=== PATIENT | male | born 1960 | race Two or more races ===

== ENCOUNTER 2018-02-20 15:29 | Inpatient (IN) | payer OTHER ==
[2018-02-20] MEDS ORDERED: HYDRALAZINE HCL INJ/PF 20 MG/1 ML SDV IV ONE (15:54)
--- NOTE | 2018-02-20 15:57 | ER Document Report ---
ED Medical Screen (RME) - General Chief Complaint: Chest Pain Stated Complaint: CHEST PAIN, BLOOD IN URINE, WEAKNESS Time Seen by Provider: 02/20/18 15:49 Notes: RME DISCLOSURE I have seen this patient as part of a Rapid Medical Evaluation and, if applicable, placed any initially appropriate orders. The patient will be seen and fully evaluated, including a full history and physical exam, by a provider ( in Main ED or Fast Track) when a room becomes available. 57-year-old male here with complaints of shortness of breath left-sided nonradiating chest pain worse with breathing but not with exertion. This is been ongoing for the past 1-2 weeks. Symptoms are also worse with laying flat and improved with sitting upright. He denies history of heart failure. He was told 10 years ago that his blood pressure was elevated and he was given a 30 day prescription for blood pressure medications however after he finished these medications, he cannot afford to see a doctor so he never went to be evaluated therefore he has gone the past 10 years without taking blood pressure medications. He also reports that he's been urinating blood but denies abdominal pain flank pain back pain. TRAVEL OUTSIDE OF THE [place] IN LAST 30 DAYS: No - Related Data Allergies/Adverse Reactions: No Known Allergies Allergy (Verified 02/20/18 15:29) Past Medical History - Social History Chew tobacco use (# tins/day): No Frequency of alcohol use: Occasional Drug Abuse: None - Past Medical History Cardiac Medical History: Reports: Hx Hypertension - non-compliant with meds Renal/ Medical History: Denies: Hx Peritoneal Dialysis - Immunizations Immunizations up to date: Yes Hx Diphtheria, Pertussis, Tetanus Vaccination: Yes Physical Exam - Vital signs Vitals: Temp Pulse Resp BP Pulse Ox 98.4 F 99 16 188/117 H 96 02/20/18 15:39 02/20/18 15:39 02/20/18 15:39 02/20/18 15:39 02/20/18 15:39 Course - Vital Signs Vital signs: Temp Pulse Resp BP Pulse Ox 98.4 F 99 16 188/117 H 96 02/20/18 15:39 02/20/18 15:39 02/20/18 15:39 02/20/18 15:39 02/20/18 15:39
[2018-02-20] MEDS ORDERED: NORMAL SALINE 500 ML IV ONE (16:11)
[2018-02-20 16:24] LABS: ABSOLUTE BASOPHILS # (AUTO) 0.2 10^3/uL (0.0-0.2); ABSOLUTE EOSINOPHILS # (AUTO) 0.2 10^3/uL (0.0-0.6); ABSOLUTE LYMPHOCYTES (AUTO) 2.4 10^3/uL (0.5-4.7); ABSOLUTE MONOCYTES (AUTO) 0.9 10^3/uL (0.1-1.4); BASOPHILS % (AUTO) 1.4 % (0-2); EOSINOPHILS % (AUTO) 1.7 % (0-6); HEMOGLOBIN 10.7 g/dL (13.5-17.0); LYMPHOCYTES % (AUTO) 18.9 % (13-45); MEAN CORPUSCULAR HGB CONC 32.3 g/dL (32.0-36.0); MEAN CORPUSCULAR VOLUME 83 fl (80-97); MONOCYTES % (AUTO) 6.9 % (3-13); PLATELET COUNT 296 10^3/uL (150-450); RED BLOOD COUNT 3.96 10^6/uL (4.35-5.55); RED CELL DISTRIBUTION WIDTH 16.5 % (11.5-14.0); SEGMENTED NEUTROPHILS % (AUTO) 71.1 % (42-78); TOTAL CELLS COUNTED % (AUTO) 100 %; WHITE BLOOD COUNT 12.6 10^3/uL (4.0-10.5)
[2018-02-20 16:29] LABS: INTERNATIONAL RATION (INR) 1.05; PROTHROMBIN TIME 14.3 SEC (11.4-15.4)
[2018-02-20 16:38] LABS: ALANINE AMINOTRANSFERASE 32 U/L (21-72); ALKALINE PHOSPHATASE 70 U/L (38-126); ANION GAP 12 (5-19); ASPARTATE AMINO TRANSFERASE 24 U/L (17-59); BILIRUBIN,DIRECT 0.4 mg/dL (0.0-0.4); BILIRUBIN,TOTAL 0.6 mg/dL (0.2-1.3); BLOOD UREA NITROGEN 29 mg/dL (7-20); CALCIUM 9.6 mg/dL (8.4-10.2); CARBON DIOXIDE 31 mmol/L (22-30); CHLORIDE 99 mmol/L (98-107); GLUCOSE 142 mg/dL (75-110); LIPASE 85.7 U/L (23-300); SODIUM 141.7 mmol/L (137-145); TOTAL PROTEIN 7.5 g/dL (6.3-8.2)
[2018-02-20 16:58] LABS: TROPONIN I 0.072 ng/mL
[2018-02-20 18:08] LABS: APPEARANCE,URINE SLIGHTLY-CLOUDY; BILIRUBIN,URINE NEGATIVE (NEGATIVE); COLOR,URINE RED; GLUCOSE, URINE 50 mg/dL (NEGATIVE); KETONES,URINE NEGATIVE (NEGATIVE); LEUKOCYTE ESTERASE,URINE TRACE (NEGATIVE); NITRITE,URINE NEGATIVE (NEGATIVE); PROTEIN,URINE 100 mg/dL (NEGATIVE); URINE SPECIFIC GRAVITY 1.012; UROBILINOGEN,URINE NEGATIVE mg/dL (<2.0)
[2018-02-20] MEDS ORDERED: NICARDIPINE HCL RTU, ISO-OS 20 MG/200 ML RTUINJ IV PRN (18:12)
--- NOTE | 2018-02-20 18:15 | RADIOLOGY REPORT (SQ) ---
EXAM DESCRIPTION: CTA CHEST COMPLETED DATE/TIME: 02/20/2018 5:52 pm REASON FOR STUDY: L sided CP w breathing; eval PE dissection COMPARISON: Chest x-ray 06/02/2011 TECHNIQUE: CT scan of the chest performed using helical scanning technique with dynamic intravenous contrast injection. Images reviewed with lung, soft tissue and bone windows. Reconstructed coronal and sagittal MPR images reviewed. Additional 3 dimensional post-processing performed to develop Maximal Intensity Projection images (VA P). All images stored on PACS. All CT scanners at this facility use dose modulation, iterative reconstruction, and/or weight based d osing when appropriate to reduce radiation dose to as low as reasonably achievable (ALARA). [facility]: Dose Right [facility]: CareDose [facility]: Dose Right [facility]: Teradose 4D [facility]: OnApp CONTRAST TYPE AND DOSE: contrast/concentration: Isovue 300.00 mg/ml; Total Contrast Delivered: 63.0 ml; Total Saline Delivered: 85.0 ml Contrast bolus optimized for the pulmonary arteries. Not diagnostic for the aorta. RENAL FUNCTION: BUN 29 creatinine 1.68 RADIATION DOSE: CT Rad equipment meets quality standard of care and radiation dose reduction techniq ues were employed. CTDIvol: 14.3 - 19.8 mGy. DLP: 558 mGy-cm. . LIMITATIONS: None. FINDINGS: LUNGS AND PLEURA: No masses, infiltrates, pneumothorax. No pleural effusions, calcificati ons. AORTA AND GREAT VESSELS: No aneurysm. Contrast bolus not optimized for the aorta. HEART: No pericardial effusion. No significant coronary artery calcifications. PULMONARY ARTERIES: No emboli visualized in the main pulmonary arteries or the segmental branches. HILAR AND MEDIASTINAL STRUCTURES: No identified masses or abnormal nodes. HARDWARE: None in the chest. UPPER ABDOMEN: Possible mild left hydronephrosis. THYROID AND OTHER SOFT TISSUES: No masses. No adenopathy. BONES: No acute or significant finding. 3D MIPS: Confirm above findings. OTHER: No other significant finding. IMPRESSION: 1. There is no evidence of pulmonary embolus. There is no aortic aneurysm. 2. Possible left hydronephrosis. COMMENT: Quality ID # [id number]: Final reports with documentation of one or more dose reduction techniques (e.g., Automated exposure control, adjustment of the mA and/or kV according to patient size, use of iterative reconstruction technique) TECHNICAL DOCUMENTATION: JOB ID: [id number] [employer]- All Rights Reserved Reading location - IP/workstation name: [email or web address]
[2018-02-20] MEDS ORDERED: METOPROLOL TARTRATE 50 MG TABLET PO ONE (20:14)
--- NOTE | 2018-02-20 20:18 | ER Document Report ---
ED General - General Chief Complaint: Chest Pain Stated Complaint: CHEST PAIN, BLOOD IN URINE, WEAKNESS Time Seen by Provider: 02/20/18 15:49 TRAVEL OUTSIDE OF THE [place] IN LAST 30 DAYS: No - HPI Patient complains to provider of: Chest pain blood and urine shortness of breath Notes: Patient coming in for 2 weeks of intermittent chest pain elevated blood pressure shortness of breath patient's shortness of breath is with exertion especially when the patient lies flat at night. Patient states he does have a history of high blood pressure however last time he was here in ER he did receive medications however has not had any medications or any reevaluation since that time. Patient denies any hip pain denies any chest pain at this time but does state he has had left intermittent chest pain over the last few days. Patient denies any recent travel. Patient denies a history of PE or DVT. Patient resting comfortably upon evaluation patient does state he is a daily smoker. - Related Data Allergies/Adverse Reactions: No Known Allergies Allergy (Verified 02/20/18 15:29) Past Medical History - Social History Smoking Status: Current Every Day Smoker Chew tobacco use (# tins/day): No Frequency of alcohol use: Occasional Drug Abuse: None Family History: Reviewed & Not Pertinent Patient has suicidal ideation: No Patient has homicidal ideation: No - Past Medical History Cardiac Medical History: Reports: Hx Hypertension - non-compliant with meds Renal/ Medical History: Denies: Hx Peritoneal Dialysis - Immunizations Immunizations up to date: Yes Hx Diphtheria, Pertussis, Tetanus Vaccination: Yes Review of Systems - Review of Systems Constitutional: No symptoms reported EENT: No symptoms reported Cardiovascular: Chest pain, Orthopnea, Dyspnea, Paroxysmal Nocturnal Dysp Respiratory: Short of breath Gastrointestinal: No symptoms reported Genitourinary: No symptoms reported Male Genitourinary: No symptoms reported Musculoskeletal: No symptoms reported Skin: No symptoms reported Hematologic/Lymphatic: No symptoms reported Neurological/Psychological: No symptoms reported -: Yes All other systems reviewed and negative Physical Exam - Vital signs Vitals: Temp Pulse Resp BP Pulse Ox 98.4 F 99 16 188/117 H 96 02/20/18 15:39 02/20/18 15:39 02/20/18 15:39 02/20/18 15:39 02/20/18 15:39 Interpretation: Hypertensive - General General appearance: Appears well, Alert - HEENT Head: Normocephalic, Atraumatic Eyes: Normal Pupils: PERRL - Respiratory Respiratory status: No respiratory distress Chest status: Nontender Breath sounds: Normal Chest palpation: Normal - Cardiovascular Rhythm: Regular Heart sounds: Normal auscultation Murmur: No - Abdominal Inspection: Normal Distension: No distension Bowel sounds: Normal Tenderness: Nontender Organomegaly: No organomegaly - Back Back: Normal, Nontender - Extremities General upper extremity: Normal inspection, Nontender, Normal color, Normal ROM , Normal temperature General lower extremity: Normal inspection, Nontender, Normal color, Normal ROM , Normal temperature, Normal weight bearing. No: Alan's sign - Neurological Neuro grossly intact: Yes Cognition: Normal Orientation: AAOx4 Leonidas Coma Scale Eye Opening: Spontaneous Michele Coma Scale Verbal: Oriented Leonidas Coma Scale Motor: Obeys Commands Michele Coma Scale Total: 15 Speech: Normal Motor strength normal: LUE, RUE, LLE, RLE Sensory: Normal - Psychological Associated symptoms: Normal affect, Normal mood - Skin Skin Temperature: Warm Skin Moisture: Dry Skin Color: Normal Course - Re-evaluation Re-evalutation: 02/20/18 20:16 Discussed with hospitalist to admit the patient due to uncontrolled hypertension and acute renal failure new onset CHF hypokalemia. Hospitalist is concerned for the possible hydronephrosis seen on CTA and is requesting a CAT scan of the abdomen to evaluate this further. I did start the patient on a Cardene drip to help lower his blood pressure 20%. Hospitalist is requesting at this time also start patient on metoprolol. 02/20/18 23:08 Metoprolol has brought patient's blood pressure down we will hold on the Cardene drip. CAT scan returned showing no acute pathology. I did reconsult with the hospitalist agrees to admit the patient for acute renal failure new- onset CHF and hyperkalemia hypertension uncontrolled - Vital Signs Vital signs: Temp Pulse Resp BP Pulse Ox 98.4 F 99 19 147/84 H 93 02/20/18 15:39 02/20/18 15:39 02/20/18 22:56 02/20/18 22:56 02/20/18 22:56 - Laboratory Result Diagrams: 02/20/18 16:00 02/20/18 16:00 Laboratory results interpreted by me: 02/20/18 02/20/1802/20/18 16:00 16:00 16:00 WBC 12.6 H RBC 3.96 L Hgb 10.7 L Hct 33.0 L RDW 16.5 H Absolute Neutrophils 9.0 H APTT Potassium 3.0 L* Carbon Dioxide 31 H BUN 29 H Creatinine 1.68 H Est GFR ( Amer) 51 L Est GFR (Non-Af Amer) 42 L Glucose 142 H NT-Pro-B Natriuret Pep 9350 H Urine Protein Urine Glucose (UA) Urine Blood Ur Leukocyte Esterase 02/20/18 02/20/18 16:00 17:38 WBC RBC Hgb Hct RDW Absolute Neutrophils APTT 36.0 H Potassium Carbon Dioxide BUN Creatinine Est GFR ( Amer) Est GFR (Non-Af Amer) Glucose NT-Pro-B Natriuret Pep Urine Protein 100 H Urine Glucose (UA) 50 H Urine Blood LARGE H Ur Leukocyte Esterase TRACE H Critical Care Note - Critical Care Note Total time excluding time spent on procedures (mins): 35 Comments: Multiple evaluation for patient with acute renal failure hyperkalemia new onset CHF hypertension requiring Cardene drip Discharge - Discharge Clinical Impression: Accelerated hypertension, New onset CHF, Acute hypokalemia Chest pain Qualifiers: Chest pain type: unspecified Qualified Code(s): R07.9 - Chest pain, unspecified Acute renal failure Qualifiers: Acute renal failure type: unspecified Qualified Code(s): N17.9 - Acute kidney failure, unspecified Condition: Good Disposition: ADMITTED INPATIENT Admitting Provider: [facility] Unit Admitted: [facility]
--- NOTE | 2018-02-20 21:57 | EKG REPORT ---
SEVERITY:- ABNORMAL ECG - SINUS TACHYCARDIA LEFT ATRIAL ABNORMALITY LVH WITH SECONDARY REPOLARIZATION ABNORMALITY ABNORMAL T, PROBABLE ISCHEMIA, LATERAL LEADS PROLONGED QT INTERVAL : Confirmed by: Archie Lewis 20-Feb-2018 21:57:05
--- NOTE | 2018-02-20 22:01 | RADIOLOGY REPORT (SQ) ---
EXAM DESCRIPTION: CT LTD RENAL STONE PROTOCOL ON COMPLETED DATE/TIME: 02/20/2018 8:37 pm REASON FOR STUDY: eval possible hydro on left COMPARISON: None. TECHNIQUE: CT scan of the abdomen and pelvis performed without intravenous or oral contrast. Images reviewed with lung, soft tissue, and bone windows. Reconstructed coronal and sagittal MPR images revi ewed. All images stored on PACS. All CT scanners at this facility use dose modulation, iterative reconstruction, and/or weight based d osing when appropriate to reduce radiation dose to as low as reasonably achievable (ALARA). [facility]: Dose Right [facility]: CareDose [facility]: Dose Right [facility]: Teradose 4D [facility]: Smart [employer] RADIATION DOSE: CT Rad equipment meets quality standard of care and radiation dose reduction techniq ues were employed. CTDIvol: 4.8 mGy. DLP: 218 mGy-cm.mGy. LIMITATIONS: None. FINDINGS: LOWER CHEST: No significant findings. No nodules or infiltrates. NON-CONTRASTED LIVER, SPLEEN, ADRENALS: Evaluation limited by lack of IV contrast. No identified sign ificant masses. PANCREAS: No masses. No peripancreatic inflammatory changes. GALLBLADDER: Small stones. No inflammatory changes to suggest cholecystitis. RIGHT KIDNEY AND URETER: No suspicious masses. Assessment limited by lack of IV contrast. No signif icant calcifications. No hydronephrosis or hydroureter. LEFT KIDNEY AND URETER: No suspicious masses. Assessment limited by lack of IV contrast. No signifi cant calcifications. No hydronephrosis or hydroureter. AORTA AND RETROPERITONEUM: No aneurysm. No retroperitoneal masses or adenopathy. BOWEL AND PERITONEAL CAVITY: No obvious masses or inflammatory changes. No free fluid. APPENDIX: Not visualized. PELVIS, BLADDER, AND ABDOMINAL WALL:Enlarged prostate. No free fluid. Mild bladder wall thickening. . BONES: No acute findings. OTHER: No other significant finding. IMPRESSION: No hydronephrosis. Mild bladder wall thickening. COMMENT: Quality ID # [id number]: Final reports with documentation of one or more dose reduction techniques (e.g., Automated exposure control, adjustment of the mA and/or kV according to patient size, use of iterative reconstruction technique) TECHNICAL DOCUMENTATION: JOB ID: [id number] [place]-72 2010 [employer]- All Rights Reserved Reading location - IP/workstation name: [email or web address]
[2018-02-20] MEDS ORDERED: ONDANSETRON HCL INJ/PF 4 MG/2 ML SDV IV PRN (23:07)
[2018-02-20] MEDS ORDERED: ASPIRIN 81 MG TABLET, CHEWABLE PO ONE (23:16)
[2018-02-20] MEDS ORDERED: NORMAL SALINE 1000 ML 1,000 ML IV PRN (23:29)
--- NOTE | 2018-02-20 23:29 | PDOC H&P ---
History of Present Illness History of Present Illness: OKSANA GIBSON is a 57 year old black male patient presented with chief complaint of chest pain and shortness of breath. For the above-mentioned complaint patient initially has visited the [facility] he was found to have accelerated hypertension for which the [facility] physician directed him to visit ER. At the time of his presentation his blood pressure was 193/129 and patient has been started on Cardene drip and also given a dose of 50 mg metoprolol his last blood pressure is 147/84. His initial workup shows creatinine of 1.68, potassium was 3 and BNP of 9300. Of note the patient is a known case of hypertension but has never been on any medication for the last 10 years. Incidentally his urinalysis also revealed hematuria but patient does not have any urinary complaints. His chest pain is mild and patient points to his back. He does not have any fever or any other acute constitutional symptoms. No nausea, vomiting, abdominal pain, change in bowel habits. He does not have any hematochezia or melanotic stool. No headache, dizziness or blurring of vision. Past Medical History Cardiac Medical History: Reports: Hypertension - non-compliant with meds Past Surgical History Past Surgical History: Reports: None Social History Smoking Status: Current Every Day Smoker Family History Family History: Reviewed & Not Pertinent, Hypertension Parental Family History Reviewed: Yes Children Family History Reviewed: No Sibling(s) Family History Reviewed.: Yes Medication/Allergy Home Medications: Aspirin [Aspirin EC] 81 mg PO DAILY 02/20/18 Allergies/Adverse Reactions: No Known Allergies Allergy (Verified 02/20/18 15:29) Review of Systems Constitutional: PRESENT: as per HPI Eyes: PRESENT: as per HPI Cardiovascular: PRESENT: as per HPI Respiratory: PRESENT: as per HPI Neurological: PRESENT: as per HPI Physical Exam Vital Signs: Temp Pulse Resp BP Pulse Ox 98.4 F 99 19 147/84 H 93 02/20/18 15:39 02/20/18 15:39 02/20/18 22:56 02/20/18 22:56 02/20/18 22:56 Intake & Output 02/19/18 02/20/18 02/21/18 06:59 06:59 06:59 Weight 59.4 kg General appearance: PRESENT: no acute distress, well-developed, well-nourished Head exam: PRESENT: atraumatic, normocephalic Eye exam: PRESENT: conjunctiva pink, EOMI, PERRLA. ABSENT: scleral icterus Neck exam: PRESENT: carotid bruit Respiratory exam: PRESENT: clear to auscultation jenny. ABSENT: rales, rhonchi, wheezes Cardiovascular exam: PRESENT: RRR. ABSENT: diastolic murmur, rubs, systolic murmur GI/Abdominal exam: PRESENT: normal bowel sounds, soft. ABSENT: distended, guarding, mass, organolmegaly, rebound, tenderness Neurological exam: PRESENT: alert, oriented to time, oriented to situation Results Laboratory Results: 02/20/18 16:00 02/20/18 16:00 02/20/18 02/20/18 02/20/18 16:00 16:00 17:38 WBC 12.6 H RBC 3.96 L Hgb 10.7 L Hct 33.0 L MCV 83 MCH 27.0 MCHC 32.3 RDW 16.5 H Plt Count 296 Seg Neutrophils % 71.1 Lymphocytes % 18.9 Monocytes % 6.9 Eosinophils % 1.7 Basophils % 1.4 Absolute Neutrophils 9.0 H Absolute Lymphocytes 2.4 Absolute Monocytes 0.9 Absolute Eosinophils 0.2 Absolute Basophils 0.2 Sodium 141.7 Potassium 3.0 L* Chloride 99 Carbon Dioxide 31 H Anion Gap 12 BUN 29 H Creatinine 1.68 H Est GFR ( Amer) 51 L Est GFR (Non-Af Amer) 42 L Glucose 142 H Calcium 9.6 Magnesium 2.3 Total Bilirubin 0.6 AST 24 ALT 32 Alkaline Phosphatase 70 Total Protein 7.5 Albumin 4.0 Lipase 85.7 Urine Color RED Urine Appearance SLIGHTLY-CLOUDY Urine pH 7.0 Ur Specific [place] 1.012 Urine Protein 100 H Urine Glucose (UA) 50 H Urine Ketones NEGATIVE Urine Blood LARGE H Urine Nitrite NEGATIVE Ur Leukocyte Esterase TRACE H Urine WBC (Auto) 109 Urine RBC (Auto) >182 02/20/18 16:00 Troponin I 0.072 NT-Pro-B Natriuret Pep 9350 H Impressions: Chest/Abdomen CTA 02/20/18 15:54 IMPRESSION: 1. There is no evidence of pulmonary embolus. There is no aortic aneurysm. 2. Possible left hydronephrosis. Limited or Localized CT 02/20/18 20:14 IMPRESSION: No hydronephrosis. Mild bladder wall thickening. Assessment & Plan - Diagnosis (1) Hypertensive emergency Is this a current diagnosis for this admission?: Yes Plan: Patient is currently off Cardene drip. He has been started on metoprolol, lisinopril, hydrochlorothiazide and aspirin. Since patient has markedly elevated BNP I will request echocardiogram of the heart since patient has long-standing history of untreated hypertension he might have underlying congestive heart failure. (2) Acute kidney injury Is this a current diagnosis for this admission?: Yes Plan: Cautious hydration, will avoid nephrotoxic agents this and monitor his renal function. (3) Tobacco dependence Is this a current diagnosis for this admission?: Yes Plan: Patient counseled to quit smoking (4) Medical non-compliance Is this a current diagnosis for this admission?: Yes Plan: Patient advised to comply with medication. - Time Time Spent: 30 to 50 Minutes Within: within 72 hours - Inpatient Certification Medical Necessity: Need For IV Fluids
[2018-02-21 05:11] LABS: ABSOLUTE BASOPHILS # (AUTO) 0.1 10^3/uL (0.0-0.2); ABSOLUTE EOSINOPHILS # (AUTO) 0.4 10^3/uL (0.0-0.6); ABSOLUTE LYMPHOCYTES (AUTO) 2.2 10^3/uL (0.5-4.7); ABSOLUTE MONOCYTES (AUTO) 0.8 10^3/uL (0.1-1.4); ABSOLUTE NEUT (AUTO) 7.6 10^3/uL (1.7-8.2); BASOPHILS % (AUTO) 1.2 % (0-2); EOSINOPHILS % (AUTO) 3.8 % (0-6); HEMATOCRIT 31.9 % (37.9-51.0); HEMOGLOBIN 10.4 g/dL (13.5-17.0); LYMPHOCYTES % (AUTO) 19.4 % (13-45); MEAN CORPUSCULAR HEMOGLOBIN 26.9 pg (27.0-33.4); MEAN CORPUSCULAR HGB CONC 32.5 g/dL (32.0-36.0); MEAN CORPUSCULAR VOLUME 83 fl (80-97); MONOCYTES % (AUTO) 7.3 % (3-13); PLATELET COUNT 270 10^3/uL (150-450); RED BLOOD COUNT 3.86 10^6/uL (4.35-5.55); RED CELL DISTRIBUTION WIDTH 16.2 % (11.5-14.0); SEGMENTED NEUTROPHILS % (AUTO) 68.3 % (42-78); TOTAL CELLS COUNTED % (AUTO) 100 %; WHITE BLOOD COUNT 11.1 10^3/uL (4.0-10.5)
[2018-02-21 05:33] LABS: ANION GAP 9 (5-19); BLOOD UREA NITROGEN 26 mg/dL (7-20); CALCIUM 9.5 mg/dL (8.4-10.2); CARBON DIOXIDE 29 mmol/L (22-30); CHLORIDE 104 mmol/L (98-107); GLUCOSE 116 mg/dL (75-110); SODIUM 141.9 mmol/L (137-145)
[2018-02-21] MEDS ORDERED: POTASSIUM CHLORIDE 10 MEQ TABLET.SA PO ONE (06:00)
[2018-02-21] MEDS: LANSOPRAZOLE 30 MG TAB.RAP.DR PO SCH (06:07)
[2018-02-21] MEDS ORDERED: HYDRALAZINE HCL INJ/PF 20 MG/1 ML SDV IV PRN (08:22)
[2018-02-21] MEDS ORDERED: ALBUTEROL SULFATE 0.083% NEB 2.5 MG/3 ML AMPUL NEB PRN (08:23)
[2018-02-21] MEDS ORDERED: NICOTINE 21 MG/24 HR PATCH.TD24 TD PRN (08:25)
[2018-02-21] MEDS ORDERED: IPRATROPIUM/ALBUTEROL 0.5-2.5 MG/3 ML AMPUL NEB PRN (08:30)
[2018-02-21] MEDS ORDERED: FUROSEMIDE INJ/PF 20 MG/2 ML SDV IV SCH (08:30)
[2018-02-21] MEDS ORDERED: TAMSULOSIN HCL 0.4 MG CAP.SR.24H PO ONE (09:00)
[2018-02-21] MEDS ORDERED: HYDROCHLOROTHIAZIDE 25 MG TABLET PO SCH (10:00)
[2018-02-21] MEDS: METOPROLOL TARTRATE 50 MG TABLET PO SCH ×2 (10:01→21:56)
[2018-02-21] MEDS: AMLODIPINE BESYLATE 10 MG TABLET PO SCH (10:02)
[2018-02-21] MEDS: LISINOPRIL 10 MG TABLET PO SCH (10:02)
[2018-02-21] MEDS: DOCUSATE SODIUM 100 MG CAPSULE PO SCH (10:03)
[2018-02-21] MEDS: ENOXAPARIN SODIUM INJ 40 MG/0.4 ML DISP.SYRIN SUBCUT SCH (10:03)
[2018-02-21] MEDS: FUROSEMIDE INJ/PF 40 MG/4 ML SDV IV SCH ×2 (10:03→21:57)
--- NOTE | 2018-02-21 10:34 | PDOC PROGRESS REPORT ---
Subjective Progress Note for:: 02/21/18 Subjective:: Patient relates that shortness of breath is a slightly better. He was sent from the [facility] after finding that his blood pressure was markedly elevated and he was complaining of shortness of breath. Patient also admits that he smokes one half pack per day. A he is drinks alcohol and his last drink was a month ago. Review of systems All organ systems evaluated and negative except as in subjective All significant diagnostics and labs have been reviewed Reason For Visit: HYPERTENSIVE EMERGENCY,ACUTE KIDNEY INJURY Physical Exam Vital Signs: Temp Pulse Resp BP Pulse Ox 98.4 F 99 18 153/92 H 90 L 02/20/18 15:39 02/20/18 15:39 02/21/18 07:31 02/21/18 07:31 02/21/18 07:31 General appearance: PRESENT: cooperative, mild distress, thin Head exam: PRESENT: atraumatic, normocephalic Eye exam: PRESENT: EOMI Neck exam: PRESENT: full ROM. ABSENT: JVD, lymphadenopathy, tenderness Respiratory exam: PRESENT: crackles Cardiovascular exam: PRESENT: RRR. ABSENT: diastolic murmur, systolic murmur Vascular exam: ABSENT: normal capillary refill GI/Abdominal exam: PRESENT: normal bowel sounds, soft. ABSENT: tenderness Extremities exam: PRESENT: full ROM. ABSENT: pedal edema Musculoskeletal exam: PRESENT: ambulatory Neurological exam: PRESENT: alert, awake, oriented to person, oriented to place , oriented to time, oriented to situation, CN II-XII grossly intact Psychiatric exam: PRESENT: appropriate affect, normal mood Skin exam: PRESENT: intact, normal color Results Laboratory Results: 02/21/18 04:50 02/21/18 04:50 02/21/18 02/21/18 04:50 04:50 WBC 11.1 H RBC 3.86 L Hgb 10.4 L Hct 31.9 L MCV 83 MCH 26.9 L MCHC 32.5 RDW 16.2 H Plt Count 270 Seg Neutrophils % 68.3 Lymphocytes % 19.4 Monocytes % 7.3 Eosinophils % 3.8 Basophils % 1.2 Absolute Neutrophils 7.6 Absolute Lymphocytes 2.2 Absolute Monocytes 0.8 Absolute Eosinophils 0.4 Absolute Basophils 0.1 Sodium 141.9 Potassium 3.0 L* Chloride 104 Carbon Dioxide 29 Anion Gap 9 BUN 26 H Creatinine 1.56 H Est GFR ( Amer) 55 L Est GFR (Non-Af Amer) 46 L Glucose 116 H Calcium 9.5 Impressions: Chest/Abdomen CTA 02/20/18 15:54 IMPRESSION: 1. There is no evidence of pulmonary embolus. There is no aortic aneurysm. 2. Possible left hydronephrosis. Limited or Localized CT 02/20/18 20:14 IMPRESSION: No hydronephrosis. Mild bladder wall thickening. Assessment & Plan - Diagnosis (1) Hypertensive emergency Is this a current diagnosis for this admission?: Yes Plan: Improved and of Cardizem drip. Patient will be placed on Norvasc, hydralazine IV as needed, lisinopril and will continue Toprol XL. Will discontinue HCTZ since patient requires diuresis for congestive heart failure. (2) CHF (congestive heart failure) Qualifiers: Heart failure type: unspecified Heart failure chronicity: acute on chronic Qualified Code(s): I50.9 - Heart failure, unspecified Is this a current diagnosis for this admission?: Yes Plan: Likely due to diastolic dysfunction. Will follow-up echocardiogram. Will start Lasix IV. Order troponin and if negative to order nuclear stress test (3) Acute hypokalemia Is this a current diagnosis for this admission?: Yes Plan: Will replace p.o. and trend (4) Acute kidney injury Is this a current diagnosis for this admission?: Yes Plan: Current presentation highly suspicious of a chronic component. For now we will trend. Will order renal sonogram (5) Tobacco dependence Is this a current diagnosis for this admission?: Yes Plan: Patient educated about quitting and consequences of persistent smoking. To place a nicotine patch (6) Alcohol use Is this a current diagnosis for this admission?: Yes Plan: Suspect the patient underestimates the amount of alcohol that he consumes. Will place on multivitamins and thiamine - Time Time Spent with patient: 15-24 minutes Medications reviewed and adjusted accordingly: Yes Anticipated discharge: Home Within: within 48 hours - Inpatient Certification Based on my medical assessment, after consideration of the patient's comorbidities, presenting symptoms, or acuity I expect that the services needed warrant INPATIENT care.: Yes I certify that my determination is in accordance with my understanding of Medicare's requirements for reasonable and necessary INPATIENT services [42 CFR 412.3e].: Yes Medical Necessity: Need Close Monitoring Due to Risk of Patient Decompensation, Need For Continuous Telemetry Monitoring
[2018-02-21] MEDS ORDERED: MULTIVITAMIN TABLET PO ONE (11:45)
[2018-02-21] MEDS ORDERED: THIAMINE HCL 100 MG TABLET PO ONE (12:00)
[2018-02-21] MEDS: POTASSIUM CHLORIDE 10 MEQ TABLET.SA PO SCH ×2 (13:25→21:54)
[2018-02-21] MEDS: IPRATROPIUM/ALBUTEROL 0.5-2.5 MG/3 ML AMPUL NEB SCH ×2 (13:56→20:01)
--- NOTE | 2018-02-21 19:10 | XCELERA REPORT ---
[address] [address] Transthoracic Echocardiogram Report Name: OKSANA GIBSON Age: 57 yrs Gender: Male : 1960 Patient Status: Inpatient Patient Location: [address] [place] [address] Study Date: 02/21/2018 08:47 AM Height: 65 in Weight: 130 lb BSA: 1.6 m2 Procedure: A complete two-dimensional transthoracic echocardiogram was performed (2D, M-mode, spectral and color flow Doppler). The study was technically difficult with many images being suboptimal in quality. Reason For Study: chf Ordering Physician: LYNSEY WARD Performed By: Joe Pinedo Interpretation Summary The Ejection Fraction estimate is 50-55% Left ventricular systolic function is borderline reduced. Doppler measurements suggest pseudonormalized left ventricular relaxation, which is associated with grade II/IV or mild to moderate diastolic dysfunction There is borderline global hypokinesis of the left ventricle. There is mild concentric left ventricular hypertrophy. The left ventricle is grossly normal size. The right ventricular systolic function is normal. The right atrium is normal in size The left atrium is moderately dilated. There is a mild amount of mitral regurgitation There is no mitral valve stenosis. There is a trace amount of aortic regurgitation There is no aortic valve stenosis There is a trace to mild amount of tricuspid regurgitation Tricuspid regurgitation jet envelope not well defined to measure RV systolic pressure accurately. The aortic root is not well visualized but is probably normal size. The inferior vena cava appeared normal and decreased < 50% with respiration (RAP 10-15 mmHg) There is no pericardial effusion. MMode/2D Measurements & Calculations RVDd: 2.8 cm LVIDd: 5.7 cm FS: 25.8 % Ao root diam: 3.0 cm IVSd: 1.2 cm LVIDs: 4.2 cm EDV(Teich): 159.4 ml LVPWd: 1.2 cm ESV(Teich): 79.5 ml Ao root area: 7.0 cm2 EF(Teich): 50.1 % LA dimension: 4.4 cm Doppler Measurements & Calculations MV E max joni: MV P1/2t max joni: Ao V2 max: LV V1 max P.3 cm/sec 89.8 cm/sec 129.9 cm/sec 3.2 mmHg MV A max joni: MV P1/2t: 55.1 msec Ao max PG: LV V1 max: 48.4 cm/sec 6.8 mmHg 88.8 cm/sec MV E/A: 1.8 MVA(P1/2t): 4.0 cm2 MV dec slope: 477.2 cm/sec2 PA V2 max: 64.2 cm/sec PA max P.6 mmHg Left Ventricle The left ventricle is grossly normal size. There is mild concentric left ventricular hypertrophy. Left ventricular systolic function is borderline reduced. The Ejection Fraction estimate is 50-55%. Doppler measurements suggest pseudonormalized left ventricular relaxation, which is associated with grade II/IV or mild to moderate diastolic dysfunction. There is borderline global hypokinesis of the left ventricle. Right Ventricle The right ventricle is grossly normal size. There is normal right ventricular wall thickness. The right ventricular systolic function is normal. Atria The right atrium is normal in size. The left atrium is moderately dilated. Interarterial septum not well visualized and not well dopplered. Cannot comment on ASD/PFO presence. Mitral Valve The mitral valve is grossly normal. There is no mitral valve stenosis. There is a mild amount of mitral regurgitation. Aortic Valve The aortic valve is grossly normal. There is no aortic valve stenosis. There is a trace amount of aortic regurgitation. Tricuspid Valve The tricuspid valve is not well visualized, but is grossly normal. There is no tricuspid stenosis. There is a trace to mild amount of tricuspid regurgitation. Tricuspid regurgitation jet envelope not well defined to measure RV systolic pressure accurately. Pulmonic Valve The pulmonic valve is not well visualized. Great Vessels The aortic root is not well visualized but is probably normal size. The inferior vena cava appeared normal and decreased < 50% with respiration (RAP 10-15 mmHg). Effusions There is no pericardial effusion. : LYNSEY WARD > Archie Lewis
[2018-02-21] MEDS: ATORVASTATIN CALCIUM 40 MG TABLET PO SCH (21:53)
--- NOTE | 2018-02-21 23:11 | RADIOLOGY REPORT (SQ) ---
EXAM DESCRIPTION: U/S RETROPERITON (RENAL/AORTA) COMPLETED DATE/TIME: 02/21/2018 8:01 pm REASON FOR STUDY: luis COMPARISON: None. TECHNIQUE: Dynamic and static grayscale images acquired of the kidneys and bladder and recorded on P ACS. Additional selected color Doppler and spectral images recorded. LIMITATIONS: None. FINDINGS: RIGHT KIDNEY: Normal size. Normal echogenicity. No solid or suspicious masses. No hydronep hrosis. No calcifications. LEFT KIDNEY: Normal size. Normal echogenicity. No solid or suspicious masses. No hydronephrosis. No calcifications. BLADDER: No masses. OTHER FINDINGS: No other significant finding. IMPRESSION: No evidence for obstruction. TECHNICAL DOCUMENTATION: JOB ID: [id number] [id number] 2010 [employer]- All Rights Reserved Reading location - IP/workstation name: [email or web address]
[2018-02-22] MEDS: POTASSIUM CHLORIDE 10 MEQ TABLET.SA PO SCH (05:31)
[2018-02-22] MEDS: LANSOPRAZOLE 30 MG TAB.RAP.DR PO SCH (05:31)
[2018-02-22 06:46] LABS: ABSOLUTE RETICS # 0.092 10^6/uL (0.028-0.122); RETICULOCYTE COUNT (AUTO) 2.39 % (0.66-2.85)
[2018-02-22 07:07] LABS: ANION GAP 11 (5-19); BLOOD UREA NITROGEN 34 mg/dL (7-20); CALCIUM 9.3 mg/dL (8.4-10.2); CARBON DIOXIDE 28 mmol/L (22-30); CHLORIDE 105 mmol/L (98-107); GLUCOSE 135 mg/dL (75-110); IRON(TIBC) 28.3 ug/dL (49-181); POTASSIUM 3.8 mmol/L (3.6-5.0)
[2018-02-22 08:11] LABS: FOLATE 9.24 ng/mL (>2.76)
[2018-02-22] MEDS: IPRATROPIUM/ALBUTEROL 0.5-2.5 MG/3 ML AMPUL NEB SCH ×3 (08:23→20:04)
[2018-02-22] MEDS: FUROSEMIDE INJ/PF 40 MG/4 ML SDV IV SCH (10:52)
[2018-02-22] MEDS: MULTIVITAMIN TABLET PO SCH (10:53)
[2018-02-22] MEDS: THIAMINE HCL 100 MG TABLET PO SCH (10:53)
[2018-02-22] MEDS: AMLODIPINE BESYLATE 10 MG TABLET PO SCH (10:53)
[2018-02-22] MEDS: METOPROLOL TARTRATE 50 MG TABLET PO SCH (10:54)
[2018-02-22] MEDS: LISINOPRIL 10 MG TABLET PO SCH (10:54)
[2018-02-22] MEDS: DOCUSATE SODIUM 100 MG CAPSULE PO SCH (10:56)
[2018-02-22] MEDS: ENOXAPARIN SODIUM INJ 40 MG/0.4 ML DISP.SYRIN SUBCUT SCH (10:56)
[2018-02-22] MEDS ORDERED: ALPRAZOLAM 0.5 MG TABLET PO PRN (12:10)
[2018-02-22] MEDS: ALPRAZOLAM 0.5 MG TABLET PO SCH ×2 (15:11→21:18)
[2018-02-22] MEDS: METOPROLOL SUCCINATE 50 MG TAB.SR.24H PO SCH (15:16)
[2018-02-22 15:38] LABS: CREATINE KINASE MB 2.98 ng/mL (<4.55); TROPONIN I 0.063 ng/mL
--- NOTE | 2018-02-22 16:55 | PDOC PROGRESS REPORT ---
Subjective Progress Note for:: 02/22/18 Subjective:: Patient states that he feels better. When confronted about the nurse's concerns about going outside to smoke. He admitted that he goes to smoke. He has been smoking for 40 years and he states that is very difficult for him to quit all of a sudden. He had tried nicotine patches in the past and had not worked. However, he states that he had been smoking like a half of cigarette and throws the rest away. Also he hates to be confined to a room. Patient was updated about his overall medical condition which included an abnormal echocardiogram and recommendation to proceed with a stress test. Patient stated that he was willing to stay for the test. He was also made aware that if he does have coronary artery disease leaving AGAINST MEDICAL ADVICE may be detrimental for his health. Patient was offered to be placed on Xanax to try to decrease his level of anxiety and he is willing to try Review of systems All organ systems evaluated and negative except as in subjective All significant diagnostics and labs have been reviewed Reason For Visit: HYPERTENSIVE EMERGENCY,ACUTE KIDNEY INJURY Physical Exam Vital Signs: Temp Pulse Resp BP Pulse Ox 98.1 F 88 17 113/73 95 02/22/18 03:28 02/22/18 03:28 02/22/18 03:28 02/22/18 03:28 02/22/18 03:28 Intake & Output 02/21/18 02/22/18 02/23/18 06:59 06:59 06:59 Intake Total 414 Output Total 200 Balance 214 Weight 58.5 kg General appearance: PRESENT: no acute distress, cooperative, thin Head exam: PRESENT: atraumatic, normocephalic Eye exam: PRESENT: conjunctiva pink, EOMI, PERRLA Ear exam: PRESENT: normal external ear exam Neck exam: PRESENT: full ROM. ABSENT: JVD, lymphadenopathy, tenderness Respiratory exam: PRESENT: clear to auscultation jenny Cardiovascular exam: PRESENT: RRR. ABSENT: diastolic murmur, systolic murmur Vascular exam: PRESENT: normal capillary refill GI/Abdominal exam: PRESENT: normal bowel sounds, soft. ABSENT: tenderness Extremities exam: PRESENT: full ROM. ABSENT: pedal edema Musculoskeletal exam: PRESENT: ambulatory Neurological exam: PRESENT: alert, awake, oriented to person, oriented to place , oriented to time, oriented to situation, CN II-XII grossly intact Psychiatric exam: PRESENT: anxious Skin exam: PRESENT: intact, normal color Results Laboratory Results: 02/21/18 04:50 02/22/18 06:04 Retic Count (auto) 2.39 Absolute Retic 0.092 02/21/18 02/21/18 02/21/18 10:24 14:27 20:27 Troponin I 0.060 0.066 0.069 Impressions: Chest/Abdomen CTA 02/20/18 15:54 IMPRESSION: 1. There is no evidence of pulmonary embolus. There is no aortic aneurysm. 2. Possible left hydronephrosis. Limited or Localized CT 02/20/18 20:14 IMPRESSION: No hydronephrosis. Mild bladder wall thickening. Renal Ultrasound 02/21/18 00:00 IMPRESSION: No evidence for obstruction. Assessment & Plan - Diagnosis (1) Hypertensive emergency Is this a current diagnosis for this admission?: Yes Plan: Continue current management. Emergency resolved (2) CHF (congestive heart failure) Qualifiers: Heart failure type: diastolic Heart failure chronicity: acute on chronic Qualified Code(s): I50.33 - Acute on chronic diastolic (congestive) heart failure Is this a current diagnosis for this admission?: Yes Plan: Pattern due to diastolic dysfunction. Will discontinue Lasix and continue with blood pressure control. Will order nuclear stress test due to global hypokinesis (3) Acute hypokalemia Is this a current diagnosis for this admission?: Yes Plan: Resolved with supplementation (4) Acute kidney injury Is this a current diagnosis for this admission?: Yes Plan: Renal sonogram normal. Will continue trending this abnormality appears to be due to chronic issues (5) Tobacco dependence Is this a current diagnosis for this admission?: Yes Plan: Continue patch and will add Xanax (6) Alcohol use Is this a current diagnosis for this admission?: Yes Plan: Suspect the patient underestimates the amount of alcohol that he consumes. Continue multivitamins and thiamine (7) Anemia Qualifiers: Anemia type: unspecified type Qualified Code(s): D64.9 - Anemia, unspecified Is this a current diagnosis for this admission?: Yes Plan: Anemia panel had been ordered. Likely due to chronic disease - Time Time Spent with patient: 15-24 minutes Medications reviewed and adjusted accordingly: Yes Anticipated discharge: Home Within: within 48 hours - Inpatient Certification Based on my medical assessment, after consideration of the patient's comorbidities, presenting symptoms, or acuity I expect that the services needed warrant INPATIENT care.: Yes I certify that my determination is in accordance with my understanding of Medicare's requirements for reasonable and necessary INPATIENT services [42 CFR 412.3e].: Yes Medical Necessity: Need Close Monitoring Due to Risk of Patient Decompensation, Need For Continuous Telemetry Monitoring
[2018-02-22 21:11] LABS: CREATINE KINASE MB 3.19 ng/mL (<4.55); TROPONIN I 0.063 ng/mL
[2018-02-22] MEDS: ATORVASTATIN CALCIUM 40 MG TABLET PO SCH (21:18)
[2018-02-23 03:21] LABS: ANION GAP 8 (5-19); BLOOD UREA NITROGEN 33 mg/dL (7-20); CALCIUM 9.3 mg/dL (8.4-10.2); CARBON DIOXIDE 30 mmol/L (22-30); CHLORIDE 105 mmol/L (98-107); GLUCOSE 127 mg/dL (75-110); POTASSIUM 3.6 mmol/L (3.6-5.0); SODIUM 142.5 mmol/L (137-145)
[2018-02-23 03:29] LABS: ABSOLUTE BASOPHILS # (AUTO) 0.1 10^3/uL (0.0-0.2); ABSOLUTE EOSINOPHILS # (AUTO) 0.8 10^3/uL (0.0-0.6); ABSOLUTE LYMPHOCYTES (AUTO) 2.9 10^3/uL (0.5-4.7); ABSOLUTE NEUT (AUTO) 7.1 10^3/uL (1.7-8.2); BASOPHILS % (AUTO) 1.1 % (0-2); EOSINOPHILS % (AUTO) 6.4 % (0-6); HEMATOCRIT 31.6 % (37.9-51.0); HEMOGLOBIN 10.1 g/dL (13.5-17.0); LYMPHOCYTES % (AUTO) 24.4 % (13-45); MEAN CORPUSCULAR HGB CONC 32.1 g/dL (32.0-36.0); MEAN CORPUSCULAR VOLUME 84 fl (80-97); MONOCYTES % (AUTO) 8.7 % (3-13); PLATELET COUNT 325 10^3/uL (150-450); RED BLOOD COUNT 3.76 10^6/uL (4.35-5.55); RED CELL DISTRIBUTION WIDTH 16.4 % (11.5-14.0); SEGMENTED NEUTROPHILS % (AUTO) 59.4 % (42-78); TOTAL CELLS COUNTED % (AUTO) 100 %
[2018-02-23 03:34] LABS: CREATINE KINASE MB 2.11 ng/mL (<4.55); TROPONIN I 0.057 ng/mL
[2018-02-23] MEDS ORDERED: NORMAL SALINE 1000 ML 1,000 ML IV PRN (06:28)
[2018-02-23] MEDS: IPRATROPIUM/ALBUTEROL 0.5-2.5 MG/3 ML AMPUL NEB SCH ×2 (08:42→14:14)
[2018-02-23] MEDS ORDERED: FUROSEMIDE 20 MG TABLET PO SCH (10:00)
[2018-02-23] MEDS: AMLODIPINE BESYLATE 10 MG TABLET PO SCH (10:09)
[2018-02-23] MEDS: LANSOPRAZOLE 30 MG TAB.RAP.DR PO SCH (10:10)
[2018-02-23] MEDS: ALPRAZOLAM 0.5 MG TABLET PO SCH ×2 (10:11→15:00)
[2018-02-23] MEDS: THIAMINE HCL 100 MG TABLET PO SCH (10:11)
[2018-02-23] MEDS: MULTIVITAMIN TABLET PO SCH (10:11)
[2018-02-23] MEDS: LISINOPRIL 10 MG TABLET PO SCH (10:11)
[2018-02-23] MEDS: DOCUSATE SODIUM 100 MG CAPSULE PO SCH (10:17)
[2018-02-23] MEDS: ENOXAPARIN SODIUM INJ 40 MG/0.4 ML DISP.SYRIN SUBCUT SCH (10:17)
[2018-02-23 12:40] VITALS: BP 156/84
--- NOTE | 2018-02-23 13:04 | DRAGON STRESS TEST REPORT ---
Date of procedure 02/23/18 Date of 1960 Primary care physician [facility] Ordering physician Dr. Nitin MD Reason for study chest pain Imaging protocol walking Lexiscan nuclear MIBI SPECT study Rest images of the heart were obtained 60 minutes after injection of Cardiolite 10.95 mCi. Under the supervision of Dr. Jhon Roland MD patient was walked on manual treadmill protocol and given Lexiscan 0.4 mg IV followed by Cardiolite 31.8 mCi. Patient's resting heart rate was 89 bpm and increased to a maximum 115 bpm. Patient's resting blood pressure was 141/88 mmHg and increased to 205/ 102 mmHg. Patient denied any chest pain or shortness of breath after Lexiscan injection. Patient's resting EKG showed sinus rhythm with LVH with strain pattern and Q waves in lead aVL. Upon walking and Lexiscan injection patient developed mild sinus tachycardia with continued repolarization changes as noted at baseline. Diffuse artifacts make interpretation of some of the stress EKG is difficult. No EKG changes specific for ischemia noted on stress EKGs though. Stress images of the heart were obtained 60 minutes after injection of Cardiolite stress dose. Overall rest and stress images showed vertical motion and motion correction software was applied. Myocardial perfusion imaging shows fairly symmetrical radiotracer uptake on both stress and rest images except a small area of relatively fixed perfusion defect in the inferior LV wall segment which likely represents diaphragmatic attenuation. Mild ischemia however cannot be ruled out. The TID ratio was 1.05. Left ventricular ejection fraction at rest was 49% and post stress was 39%. Computer-assisted tomographic analysis shows borderline hypokinetic wall motion post stress. Impression 1. No Lexiscan induced EKG changes specific for ischemia noted. 2. Myocardial perfusion imaging shows small size predominantly fixed perfusion defect in the inferior LV wall segment and likely suggestive of diaphragmatic attenuation. Mild ischemia however cannot be ruled out. 3. Left ventricular ejection fraction calculated at 39% post stress. 4. Borderline hypokinetic LV wall motion post stress noted. 5. Recommend aggressive risk factor reduction and further evaluation of LVEF and wall motion abnormalities with a transthoracic echocardiogram if clinically indicated Electronically signed by Jhon Roland MD [employer] [facility]
[2018-02-23] MEDS ORDERED: REGADENOSON INJ 0.4 MG/5 ML DISP.SYRIN IV ONE (13:31)
[2018-02-23] MEDS: METOPROLOL SUCCINATE 50 MG TAB.SR.24H PO SCH (15:00)
--- NOTE | 2018-02-23 15:14 | PDOC DISCHARGE SUMMARY ---
General - Admit/Disc Date/PCP Admission Date/Primary Care Provider: 02/20/18 23:15 Discharge Date: 02/23/18 - Discharge Diagnosis (1) Hypertensive emergency Is this a current diagnosis for this admission?: Yes (2) CHF (congestive heart failure) Is this a current diagnosis for this admission?: Yes (3) Acute on chronic kidney failure Is this a current diagnosis for this admission?: Yes (4) Acute hypokalemia Is this a current diagnosis for this admission?: Yes (5) Tobacco dependence Is this a current diagnosis for this admission?: Yes (6) Alcohol use Is this a current diagnosis for this admission?: Yes (7) Anemia Is this a current diagnosis for this admission?: Yes (8) Chest pain Is this a current diagnosis for this admission?: Yes - Additional Information Resuscitation Status: Full Code Discharge Diet: Cardiac Discharge Activity: Activity As Tolerated Prescriptions: Amlodipine Besylate [Norvasc 10 mg Tablet] 10 mg PO DAILY #30 tablet Atorvastatin Calcium [Lipitor 40 mg Tablet] 40 mg PO QHS #30 tablet Furosemide [Lasix 20 mg Tablet] 20 mg PO DAILY #30 tablet Lisinopril [Prinivil 10 mg Tablet] 20 mg PO DAILY #60 tablet Metoprolol Succinate [Toprol Xl 50 mg Tab.sr] 100 mg PO DAILY@1600 #60 tab.sr.24h Home Medications: Aspirin [Aspirin EC] 81 mg PO DAILY 02/20/18 Amlodipine Besylate [Norvasc 10 mg Tablet] 10 mg PO DAILY #30 tablet 02/23/18 Atorvastatin Calcium [Lipitor 40 mg Tablet] 40 mg PO QHS #30 tablet 02/23/18 Furosemide [Lasix 20 mg Tablet] 20 mg PO DAILY #30 tablet 02/23/18 Lisinopril [Prinivil 10 mg Tablet] 20 mg PO DAILY #60 tablet 02/23/18 Metoprolol Succinate [Toprol Xl 50 mg Tab.sr] 100 mg PO DAILY@1600 #60 tab.sr.24h 02/23/18 History of Present Illness History of Present Illness: OKSANA GIBSON is a 57 year old male patient presented with chief complaint of chest pain and shortness of breath. He initially visited the [facility] and was found to have markeldy elevated blood pressure for which the [facility] physician directed him to visit ER. At the time of his presentation his blood pressure was 193/129 and patient has been started on Cardene drip and also given a dose of 50 mg metoprolol. His initial workup showed a creatinine of 1.68, potassium was 3.0 and BNP of 9300. Of note the patient is a known case of hypertension but has never been on any medication for the last 10 years. Incidentally his urinalysis also revealed hematuria but patient did not have any urinary complaints. His chest pain was mild and patient pointed to his back. He did not have any fever or any other acute constitutional symptoms. No nausea, vomiting, abdominal pain, change in bowel habits. He did not have any hematochezia or melanotic stool. No headache, dizziness or blurring of vision. Patient was admitted under the hospitalist service Hospital Course Hospital Course: Patient was admitted to [facility] however at that time was of Cardene drip. Troponin was trended and negative. There were no cardiac dysrhythmia. Patient was diuresis since was found to be on congestive heart failure. Further studies which included nuclear stress test and echocardiogram points to congestive heart failure due to systolic and diastolic dysfunction. EF on nuclear stress test was 39% and on echocardiogram 50-55%. Nuclear stress test did not show EKG findings suggestive of induced ischemia. Recommendation was made for aggressive risk factors modifications. Recommend since there is hypo- akinesia of the left ventricle noted. Patient has been strongly encouraged as to quit smoking however states that is quite difficult since he had been smoking for the past 40 years. He has been educated about the dangers such as heart attack, stroke, COPD, lung cancer inclusive. Patient had been advised as to quit drinking alcohol. Patient presented with abnormal renal function which were deemed to be chronic in nature due to uncontrolled high blood pressure. Renal sonogram was negative. Slight bump in renal function was primarily due to overdiuresis. Patient has been advised as to follow-up at the [facility] for follow-up of renal blood work. He was in agreement. Blood pressure management responded to placing him on Norvasc, lisinopril, Toprol and Lasix. He has been made aware that he may need further adjustments of his high antihypertensive medicines. He is to continue taking one baby aspirin daily and he was also placed on Lipitor 40 mg p.o. daily. Of note patient went to smoke while in- house despite having a nicotine patch placed and prescribed Xanax. Since patient had achieved maximum benefit of hospitalization stay prompted to discharge under stable condition Physical Exam Vital Signs: Temp Pulse Resp BP Pulse Ox 97.5 F 90 16 156/84 H 100 02/23/18 12:17 02/23/18 12:17 02/23/18 12:17 02/23/18 12:17 02/23/18 12:17 Intake & Output 02/22/18 02/23/18 02/24/18 06:59 06:59 06:59 Intake Total 414 2205 Output Total 200 Balance 214 2205 Weight 58.5 kg 59.3 kg General appearance: PRESENT: no acute distress, cooperative, thin Head exam: PRESENT: atraumatic, normocephalic Eye exam: PRESENT: conjunctiva pale, EOMI, PERRLA Ear exam: PRESENT: normal external ear exam Neck exam: PRESENT: full ROM. ABSENT: JVD, lymphadenopathy, tenderness Respiratory exam: PRESENT: clear to auscultation jenny Cardiovascular exam: PRESENT: RRR. ABSENT: diastolic murmur, systolic murmur Vascular exam: PRESENT: normal capillary refill GI/Abdominal exam: PRESENT: normal bowel sounds, soft. ABSENT: tenderness Extremities exam: PRESENT: full ROM. ABSENT: tenderness Musculoskeletal exam: PRESENT: ambulatory Neurological exam: PRESENT: alert, awake, oriented to person, oriented to place , oriented to time, oriented to situation, CN II-XII grossly intact Psychiatric exam: PRESENT: appropriate affect, normal mood Skin exam: PRESENT: intact, normal color Results Laboratory Results: 02/23/18 02:52 02/23/18 02:52 02/23/18 02/23/18 02:52 02:52 WBC 12.0 H RBC 3.76 L Hgb 10.1 L Hct 31.6 L MCV 84 MCH 27.0 MCHC 32.1 RDW 16.4 H Plt Count 325 Seg Neutrophils % 59.4 Lymphocytes % 24.4 Monocytes % 8.7 Eosinophils % 6.4 H Basophils % 1.1 Absolute Neutrophils 7.1 Absolute Lymphocytes 2.9 Absolute Monocytes 1.0 Absolute Eosinophils 0.8 H Absolute Basophils 0.1 Sodium 142.5 Potassium 3.6 Chloride 105 Carbon Dioxide 30 Anion Gap 8 BUN 33 H Creatinine 2.08 H Est GFR ( Amer) 40 L Est GFR (Non-Af Amer) 33 L Glucose 127 H Calcium 9.3 Magnesium 2.0 02/21/18 02/21/1802/21/18 10:24 14:27 20:27 Creatine Kinase CK-MB (CK-2) Troponin I 0.060 0.066 0.069 02/22/18 02/22/18 02/22/18 14:53 14:53 20:25 Creatine Kinase 91 108 CK-MB (CK-2) 2.98 Troponin I 0.063 02/22/18 02/23/18 02/23/18 20:25 02:52 02:52 Creatine Kinase 88 CK-MB (CK-2) 3.19 2.11 Troponin I 0.063 0.057 Impressions: Chest/Abdomen CTA 02/20/18 15:54 IMPRESSION: 1. There is no evidence of pulmonary embolus. There is no aortic aneurysm. 2. Possible left hydronephrosis. Limited or Localized CT 02/20/18 20:14 IMPRESSION: No hydronephrosis. Mild bladder wall thickening. Renal Ultrasound 02/21/18 00:00 IMPRESSION: No evidence for obstruction. Qualifiers - * PATEINT BEING DISCHARGED WITH ANY OF THE FOLLOWING DIAGNOSIS?: No Plan Discharge Plan: Discharge home Time Spent: Less than 30 Minutes
== END 2018-02-23 15:15 | disposition home or self-care (01) | DRG 304 ==
LOC: ER 15:29 → EH 23:15 → 3S 02-21 11:00
PROVIDERS: ADMIT Internal Medicine; ATTEND Internal Medicine
PROC: 3E0F73Z Introduction of Anti-inflammatory into Respiratory Tract, Via Natural or Artificial Opening (ICD-10-PCS; principal; 2018-02-21)
DX: I16.1 Hypertensive emergency (principal); I50.33 Acute on chronic diastolic (congestive) heart failure; N17.9 Acute kidney failure, unspecified; I13.0 Hypertensive heart and chronic kidney disease with heart failure and stage 1 through stage 4 chronic kidney disease, or unspecified chronic kidney disease; N18.9 Chronic kidney disease, unspecified; E87.6 Hypokalemia; D63.1 Anemia in chronic kidney disease; F17.210 Nicotine dependence, cigarettes, uncomplicated; I25.2 Old myocardial infarction; Z79.82 Long term (current) use of aspirin; Z86.73 Personal history of transient ischemic attack (TIA), and cerebral infarction without residual deficits; Z85.118 Personal history of other malignant neoplasm of bronchus and lung; Z91.14 Patient's other noncompliance with medication regimen; Z82.49 Family history of ischemic heart disease and other diseases of the circulatory system
CPT/HCPCS: 36415; 71275; 76380; 76770; 78452; 80048; 80053; 81001; 82550; 82553; 82607; 82728; 82746; 83540; 83550; 83690; 83735; 83880; 84466; 84484; 85025; 85045; 85610; 85730; 87086; 87088; 87186; 93005; 93010; 93017; 93306; 94640; 99291; A9500; J0360; J1650; J1940; J2785; J3490; J7030; J7040; J7620; Q9969